=== PATIENT | male | born 1950 | race Two or more races ===

== ENCOUNTER 2023-03-30 21:26 | Emergency (ER) | payer OTHER ==
[~2023-03-30] VITALS: Ht 182.9 cm; Wt 109.1 kg
[2023-03-30 22:06] LABS: Basophils # (auto) 0 10 ^3/uL (0-0.2); Basophils % (auto) 0.5 % (0.0-2.0); Eosinophils # (auto) 0 10 ^3/uL (0-0.8); Eosinophils % (auto) 0.3 % (0.0-7.0); Hematocrit 43.6 % (41.0-53.0); Hemoglobin 14.8 g/dL (13.5-17.5); Lymphocytes # (auto) 1.9 10 ^3/uL (0.4-5.4); Lymphocytes % (auto) 22.6 % (10.0-50.0); Mean Corpuscular Hemoglobin 29.2 pg (28.0-32.0); Mean Corpuscular Hgb Conc. 33.9 g/dL (32.0-36.0); Mean Corpuscular Volume 86.3 fL (80.0-100.0); Monocytes # (auto) 0.5 10 ^3/uL (0-1.3); Monocytes % (auto) 6.2 % (0.0-12.0); Neutrophils # (auto) 5.8 10 ^3/uL (1.6-8.6); Neutrophils % (auto) 70.4 % (37.0-80.0); Red Blood Cells 5.05 10^6/uL (4.5-5.90); Red Cell Distribution Width 14.7 % (11.8-14.3); White Blood Cell 8.2 10^3/uL (4.4-10.8)
[2023-03-30 22:31] LABS: Alanine Aminotransferase 28 U/L (7-40); Albumin 4.7 g/dL (3.2-4.8); Alkaline Phosphatase 94 U/L (46-116); Anion Gap 8.2 (5-15); Aspartate Aminotransferase 17 U/L (13-40); BUN/Creatinine Ratio 11.8 (10.0-20.0); Bilirubin, Total 0.4 mg/dL (0.2-1.0); Blood Urea Nitrogen 12 mg/dL (9-23); Calcium 9.5 mg/dL (8.7-10.4); Carbon Dioxide 24.8 mmol/L (20-30); Chloride 106 mmol/L (98-107); Glucose 149 mg/dL (74-106); Magnesium 2.1 mg/dL (1.6-2.6); Potassium 4.3 mmol/L (3.5-5.1); Sodium 139 mmol/L (136-145); Total Protein 7.3 g/dL (5.7-8.2)
[2023-03-30 22:37] LABS: INR 1.05 (0.9-1.15); Partial Thromboplastin Time 29.5 SEC (24.5-34.5)
[2023-03-30] MEDS ORDERED: cloNIDine HCL 0.1 MG TAB PO PRN (23:30)
[2023-03-30] MEDS ORDERED: NITROGLYCERIN 0.4 MG SL TAB SL PRN (23:30)
[2023-03-30] MEDS ORDERED: ONDANSETRON HCL 4 MG/2 ML VIAL IV PRN (23:30)
[2023-03-30] MEDS ORDERED: ACETAMINOPHEN 325 MG TAB PO PRN (23:30)
[2023-03-30] MEDS ORDERED: MORPHINE SULFATE INJ 2 MG/ml SYRG IV PRN (23:30)
[2023-03-30 23:48] LABS: LDL Cholesterol 70 mg/dL (< 100); Triglycerides 235 mg/dL (< 150)
[2023-03-30 23:50] LABS: Cholesterol 136 mg/dL (< 200); HDL Cholesterol 47 mg/dL (40-59)
[2023-03-31] MEDS ORDERED: ASPI-325 PO (02:15)
[2023-03-31 02:35] LABS: Urine Bacteria NONE SEEN /hpf (None Seen); Urine Blood Negative /uL (Negative); Urine Clarity Clear (Clear); Urine Color Yellow (Yellow); Urine Mucus FEW (None Seen); Urine Protein, UAD TRACE (Negative); Urine Urobilinogen Normal (Negative); Urine WBC 1 /hpf (0 - 3); Urine pH 6.5 (5.0-8.0)
[2023-03-31 03:50] VITALS: BP 111/68; PULSE 68; RESP 18; TEMP 97.8; O2SAT 96
[2023-03-31] MEDS ORDERED: ASPirin 81 mg TAB PO SCH (10:00)
[2023-03-31] MEDS ORDERED: ENOXAPARIN SOD 40 MG/0.4 ML SYRINGE SC SCH (10:00)
[2023-03-31] MEDS ORDERED: LISINOPRIL 10 MG TAB PO SCH (10:00)
[2023-03-31] MEDS ORDERED: PANTOPRAZOLE 40 MG TAB PO SCH (10:00)
== END 2023-03-31 03:57 | disposition home or self-care (01) ==
LOC: EDBD 21:26 → ER 21:29 → TELE 23:31 → UNDOADMIN 23:31 → ER 03-31 03:57
DX: I49.3 Ventricular premature depolarization (principal); R55 Syncope and collapse; R07.89 Other chest pain; E78.5 Hyperlipidemia, unspecified
CPT/HCPCS: 36415; 70450; 71045; 80053; 80061; 81001; 83735; 83880; 84443; 84484; 85025; 85610; 85730; 93005; 99291